=== PATIENT | female | born 1985 | race Caucasian/White ===

== ENCOUNTER 2019-09-15 23:10 | Emergency (ER) | payer MEDICARE, MEDICAID ==
[~2019-09-15] VITALS: Ht 170.2 cm; Wt 111.0 kg
--- NOTE | 2019-09-15 23:27 | NUR ---
Patient presents to ER c/o blood in urine and painful urination since today. Denies abd pain, N/V. Patient is in NAD. Respirations even and unlabored.
[2019-09-16 00:08] LABS: HCG UR SG 1.018 (1.003-1.030); MICROSCOPIC INDICATED
[2019-09-16] MEDS ORDERED: CIPROFLOXACIN 500 MG TABLET PO ONE (00:30)
[2019-09-16] MEDS ORDERED: CIPROFLOXACIN 500 MG TABLET ONE (00:30)
== END 2019-09-16 00:53 | disposition home or self-care (01) ==
LOC: EDBD 23:10 → ED 23:50
DX: N30.01 Acute cystitis with hematuria (principal); F17.200 Nicotine dependence, unspecified, uncomplicated
CPT/HCPCS: 81001; 81025; 87086; 99283